=== PATIENT | male | born 1965 | race Hispanic/Latino ===

== ENCOUNTER 2016-06-05 12:41 | Emergency (ER) | payer MEDICARE ==
[2016-06-05 12:42] VITALS: BMI 33.5
[2016-06-05 12:49] VITALS: O2SAT 97
[2016-06-05 13:44] LABS: BASO # 0.1 K/uL (0.0-0.2); BASO % 1.1 % (0.0-2.0); EOS # 0.1 K/uL (0.0-0.7); EOS % 0.8 % (0.0-4.0); HEMATOCRIT 44.3 % (35.0-51.0); LYMPH % 23.2 % (20.0-40.0); MEAN CELL VOLUME 89.7 fL (80.0-94.0); MEAN CORPUSCULAR HEMOGLOBIN 29.9 pg (27.0-31.0); MEAN CORPUSCULAR HGB CONC 33.3 g/dL (33.0-37.0); MEAN PLATELET VOLUME 9.3 fL (7.2-11.7); MONO % 7.5 % (0.0-10.0); NRBC % 0.1 % (0.0-2.0); RED CELL DISTRIBUTION WIDTH 14.2 % (11.5-14.5)
[2016-06-05 13:57] LABS: RBC URINE < 1 /hpf (0-3); URINE BILIRUBIN NEGATIVE (NEGATIVE); URINE BLOOD NEGATIVE (NEGATIVE); URINE COLOR Yellow (YELLOW); URINE GLUCOSE (UA) NORMAL (Normal); URINE KETONE 1+ mg/dL (NEGATIVE); URINE LEUKOCYTE ESTERASE NEG Leu/uL (Negative); URINE PROTEIN NEGATIVE (NEGATIVE); URINE UROBILINOGEN NORMAL mg/dL (0.2-1.0); WBC URINE 1 /hpf (0-5)
[2016-06-05 14:02] LABS: CHLORIDE 99 mmol/L (98-107)
[2016-06-05 14:03] LABS: POTASSIUM 3.5 mmol/L (3.6-5.2); SODIUM 139 mmol/L (132-148)
[2016-06-05 14:05] LABS: ALB/GLOB RATIO 1.1 (1.0-2.1); ALKALINE PHOSPHATASE 93 U/L (38-126); AST/SGOT 58 U/L (17-59); BILIRUBIN,TOTAL 0.3 mg/dL (0.2-1.3); BLOOD UREA NITROGEN 12 mg/dL (9-20); CARBON DIOXIDE 21 mmol/L (22-30); GFR AFRICAN-AMERICAN > 60; TOTAL PROTEIN 7.8 g/dL (6.3-8.3)
[2016-06-05 14:06] LABS: ALCOHOL SERUM 177 mg/dl (0-10); ALT/SGPT 59 U/L (21-72); CALCIUM 8.4 mg/dl (8.6-10.4); GLUCOSE,RANDOM 161 mg/dL (75-110)
--- NOTE | 2016-06-05 14:31 | C.PDOC ---
History Of Present Illness 50 year old male presents to the ED requesting medication and detox from alcohol. Patient admits he drank today and notes he does not want to stay in the hospital. Denies suicidal ideation, homicidal ideation, or any physical complaints at this time. Time Seen by Provider: 06/05/16 13:24 Chief Complaint (Nursing): Substance Abuse History Per: Patient History/Exam Limitations: no limitations Onset/Duration Of Symptoms: Hrs Current Symptoms Are (Timing): Still Present Suicide/Self Injury Attempted (Context): None Modifying Factor(s): Alcohol Severity: Mild Past Medical History Reviewed: Historical Data, Nursing Documentation, Vital Signs Vital Signs: Last Vital Signs Temp 97.9 F 06/05/16 15:52 Pulse 107 H 06/05/16 15:52 Resp 20 06/05/16 15:52 BP 126/66 06/05/16 15:52 Pulse Ox 97 06/05/16 16:06 - Medical History PMH: Anxiety, Bipolar Disorder, Depression, Fractures (R KNEE AND R ARM RODS), HTN Surgical History: Hernia Repair - [facility] Procedures ALCOHOL DETOXIFICATION (10/18/14) CLOSED ENDOSCOPIC BIOPSY OF LARGE INTESTINE (04/02/13) COMBINED ALCOHOL AND DRUG DETOXIFICATION (05/20/03) DETOXIFICATION SERVICES FOR SUBSTANCE ABUSE TREATMENT (12/23/15) GROUP SLIP MAKER FOR SUBSTANCE ABUSE TREATMENT, PSYCHOEDUCATION (07/21/15) GROUP PSYCHOTHERAPY (11/18/15) INDIVID PSYCHOTHERAP NEC (07/07/14) INDIVIDUAL PSYCHOTHERAPY, COGNITIVE-BEHAVIORAL (11/18/15) INDIVIDUAL PSYCHOTHERAPY, SUPPORTIVE (05/08/15) INFLUENZA VACCINATION (03/13/14) INJECT/INFUSE NEC (10/03/13) INTRODUCTION OF ANTI-INFLAMMATORY INTO JOINTS, PERC APPROACH (07/12/15) INTRODUCTION OF LOCAL ANESTHETIC INTO JOINTS, PERC APPROACH (07/12/15) INTRODUCTION OF SERUM/TOX/VACCINE INTO MUSCLE, PERC APPROACH (03/10/15) MEDICATION MANAGEMENT (08/24/15) OTHER GROUP THERAPY (07/07/14) PERCUTANEOUS ABDOMINAL DRAINAGE (06/01/13) PSYCHIAT DRUG THERAP NEC (10/18/13) VENOUS PUNCTURE NEC (04/17/12) Family History: States: Unknown Family Hx - Social History Hx Tobacco Use: Yes Hx Alcohol Use: Yes (last drank 2 liters) Hx Substance Use: No - Immunization History Hx Tetanus Toxoid Vaccination: No Hx Influenza Vaccination: Yes Hx Pneumococcal Vaccination: No Review Of Systems Except As Marked, All Systems Reviewed And Found Negative. Constitutional: Positive for: Other (+Alcohol detox). Negative for: Fever, Chills Cardiovascular: Negative for: Chest Pain Respiratory: Negative for: Shortness of Breath Gastrointestinal: Negative for: Abdominal Pain Psych: Negative for: Suicidal ideation Physical Exam - Physical Exam Appears: Non-toxic, No Acute Distress, Other (+AOB +Intoxicated) Skin: Normal Color, Warm, Dry Head: Atraumatic, Normacephalic Eye(s): bilateral: Normal Inspection Oral Mucosa: Moist Chest: Symmetrical, No Deformity Cardiovascular: Rhythm Regular, No Murmur Respiratory: Normal Breath Sounds, No Accessory Muscle Use, No Rales, No Rhonchi , No Wheezing Extremity: Normal ROM Neurological/Psych: Oriented x3 ED Course And Treatment - Laboratory Results Result Diagrams: 06/05/16 13:37 06/05/16 13:37 O2 Sat by Pulse Oximetry: 97 (Room air) Pulse Ox Interpretation: Normal Progress Note: Blood work and Urinalysis ordered and reviewed. Case discussed with the crisis care program director who agreed to evaluate the patient. Medical Decision Making Medical Decision Making: Post discussion with dr baca by ashly pt is to be refereed to OP services Pt alert verbal stead gait stable for discharge Disposition - Disposition Disposition Time: 16:06 Condition: FAIR Forms: General Discharge Instructions - Clinical Impression Clinical Impression: Alcohol abuse, Bipolar disorder - Scribe Statement The provider has reviewed the documentation as recorded by the Scribe Don Alcaraz. Provider Attestation: All medical record entries made by the Scribe were at my direction and personally dictated by me. I have reviewed the chart and agree that the record accurately reflects my personal performance of the history, physical exam, medical decision making, and the department course for this patient. I have also personally directed, reviewed, and agree with the discharge instructions and disposition.
[2016-06-05 15:53] VITALS: BP 126/66; PULSE 107; RESP 20; TEMP 97.9
== END 2016-06-05 16:24 | disposition home or self-care (01) ==
LOC: C.ER 12:41
DX: F10.10 Alcohol abuse, uncomplicated (principal); Y90.6 Blood alcohol level of 120-199 mg/100 ml; F31.9 Bipolar disorder, unspecified
CPT/HCPCS: 80053; 81001; 85025; 99284; G0480

== ENCOUNTER 2016-07-10 01:10 | Inpatient (IN) | payer MEDICARE, MEDICAID ==
[2016-07-10 01:11] VITALS: BMI 33.5
--- NOTE | 2016-07-10 02:02 | C.PDOC ---
History Of Present Illness 50 y/o male presents to ED with complaint of wanting to hurt himself. Patient states he took 10 bags of heroin without effect. Patient verbalizing he wants to hurt himself in ER. Denies homicidal ideation or any other complaints at this time. Chief Complaint (Nursing): Psychiatric Evaluation History Per: Patient History/Exam Limitations: no limitations Current Symptoms Are (Timing): Still Present Suicide/Self Injury Attempted (Context): Ingestion (heroin) Modifying Factor(s): Narcotics Associated Symptoms: Suicidal Thoughts Recent travel outside of the [place]: No Past Medical History Reviewed: Historical Data, Nursing Documentation, Vital Signs Vital Signs: Last Vital Signs Temp 98.1 F 07/10/16 04:16 Pulse 108 H 07/10/16 04:16 Resp 20 07/10/16 04:16 BP 93/56 L 07/10/16 04:16 Pulse Ox 96 07/10/16 05:46 - Medical History PMH: Anxiety, Bipolar Disorder, Depression, Fractures (R KNEE AND R ARM RODS), HTN Surgical History: Hernia Repair - [facility] Procedures ALCOHOL DETOXIFICATION (10/18/14) CLOSED ENDOSCOPIC BIOPSY OF LARGE INTESTINE (04/02/13) COMBINED ALCOHOL AND DRUG DETOXIFICATION (05/20/03) DETOXIFICATION SERVICES FOR SUBSTANCE ABUSE TREATMENT (12/23/15) GROUP LAW TUTOR FOR SUBSTANCE ABUSE TREATMENT, PSYCHOEDUCATION (07/21/15) GROUP PSYCHOTHERAPY (05/25/16) INDIVID PSYCHOTHERAP NEC (07/07/14) INDIVIDUAL PSYCHOTHERAPY, COGNITIVE-BEHAVIORAL (11/18/15) INDIVIDUAL PSYCHOTHERAPY, SUPPORTIVE (05/08/15) INFLUENZA VACCINATION (03/13/14) INJECT/INFUSE NEC (10/03/13) INTRODUCTION OF ANTI-INFLAMMATORY INTO JOINTS, PERC APPROACH (07/12/15) INTRODUCTION OF LOCAL ANESTHETIC INTO JOINTS, PERC APPROACH (07/12/15) INTRODUCTION OF SERUM/TOX/VACCINE INTO MUSCLE, PERC APPROACH (03/10/15) MEDICATION MANAGEMENT (08/24/15) OTHER GROUP THERAPY (07/07/14) PERCUTANEOUS ABDOMINAL DRAINAGE (06/01/13) PSYCHIAT DRUG THERAP NEC (10/18/13) VENOUS PUNCTURE NEC (04/17/12) Family History: States: Unknown Family Hx - Social History Hx Tobacco Use: Yes Hx Alcohol Use: Yes (DRINKS 1/2 GALLON/DAILY) Hx Substance Use: No - Immunization History Hx Tetanus Toxoid Vaccination: No Hx Influenza Vaccination: Yes Hx Pneumococcal Vaccination: No Review Of Systems Except As Marked, All Systems Reviewed And Found Negative. Constitutional: Negative for: Fever, Chills Cardiovascular: Negative for: Chest Pain, Palpitations Respiratory: Negative for: Shortness of Breath, Wheezing Gastrointestinal: Negative for: Nausea, Vomiting Skin: Negative for: Rash Neurological: Negative for: Headache, Dizziness Physical Exam - Physical Exam Appears: Non-toxic, No Acute Distress Skin: Warm, Dry Head: Atraumatic, Normacephalic Chest: Symmetrical Cardiovascular: Rhythm Regular Respiratory: Normal Breath Sounds, No Rales, No Rhonchi, No Wheezing Gastrointestinal/Abdominal: Soft, No Tenderness Back: Other (wearing back brace for past back injury) Extremity: Normal ROM, Capillary Refill (< 2 sec. ) Neurological/Psych: Oriented x3 ED Course And Treatment - Laboratory Results Result Diagrams: 07/10/16 02:01 07/10/16 02:01 O2 Sat by Pulse Oximetry: 96 (ra) Pulse Ox Interpretation: Normal Progress Note: 0545H presently awaiting crisis disposition. Psychiatrist being consulted. Reassessment Condition: Improved Disposition Discussed With : Sammy Baldwin Doctor Will See Patient In The: Hospital Counseled Patient/Family Regarding: Diagnosis - Disposition Disposition: HOSPITALIZED Disposition Time: 06:00 Condition: STABLE - POA Present On Arrival: None - Clinical Impression Clinical Impression: Major depressive disorder, Opiate abuse, continuous, Polysubstance abuse - Scribe Statement The provider has reviewed the documentation as recorded by the Macrina Jameson Provider Scribe Attestation: All medical record entries made by the Macrina were at my direction and personally dictated by me. I have reviewed the chart and agree that the record accurately reflects my personal performance of the history, physical exam, medical decision making, and the department course for this patient. I have also personally directed, reviewed, and agree with the discharge instructions and disposition.
[2016-07-10 02:04] LABS: BASO # 0.1 K/uL (0.0-0.2); BASO % 1.3 % (0.0-2.0); EOS # 0.3 K/uL (0.0-0.7); EOS % 2.8 % (0.0-4.0); LYMPH # 3.9 K/uL (1.0-4.3); LYMPH % 36.7 % (20.0-40.0); MEAN CELL VOLUME 87.6 fL (80.0-94.0); MEAN CORPUSCULAR HEMOGLOBIN 29.7 pg (27.0-31.0); MEAN CORPUSCULAR HGB CONC 33.9 g/dL (33.0-37.0); MEAN PLATELET VOLUME 8.9 fL (7.2-11.7); MONO # 0.5 K/uL (0.0-0.8); RED CELL DISTRIBUTION WIDTH 13.8 % (11.5-14.5); WHITE BLOOD COUNT 10.6 K/uL (4.8-10.8)
[2016-07-10 02:16] LABS: CHLORIDE 105 mmol/L (98-107); POTASSIUM 3.8 mmol/L (3.6-5.2); SODIUM 147 mmol/L (132-148)
[2016-07-10 02:18] LABS: BILIRUBIN,TOTAL 0.7 mg/dL (0.2-1.3); GFR AFRICAN-AMERICAN > 60
[2016-07-10 02:19] LABS: ALB/GLOB RATIO 1.3 (1.0-2.1); ALKALINE PHOSPHATASE 122 U/L (38-126); ALT/SGPT 36 U/L (21-72); AST/SGOT 54 U/L (17-59); BLOOD UREA NITROGEN 8 mg/dL (9-20); CALCIUM 8.4 mg/dl (8.6-10.4); CARBON DIOXIDE 23 mmol/L (22-30); GLUCOSE,RANDOM 105 mg/dL (75-110); TOTAL PROTEIN 7.8 g/dL (6.3-8.3)
[2016-07-10 02:20] LABS: ALCOHOL SERUM 276 mg/dl (0-10)
[2016-07-10 04:23] LABS: RBC URINE < 1 /hpf (0-3); URINE BILIRUBIN NEGATIVE (NEGATIVE); URINE BLOOD NEGATIVE (NEGATIVE); URINE COLOR Yellow (YELLOW); URINE GLUCOSE (UA) NORMAL (Normal); URINE KETONE NEGATIVE (NEGATIVE); URINE LEUKOCYTE ESTERASE NEG Leu/uL (Negative); URINE PROTEIN NEGATIVE (NEGATIVE); URINE UROBILINOGEN NORMAL mg/dL (0.2-1.0)
--- NOTE | 2016-07-10 10:24 | PCM.PSYCH ---
Initial Psychiatric Evaluation - Initial Psychiatric Evaluation Type of Admission: Voluntary Legal Status: Capacity Chief Complaint (in patient's own words): 'I am drinking and I am depressed.' History of Present Illness and Precipitating Events: Patient seen and evaluated, chart reviewed and discussed with nurse. Patient discussed at morning meeting and it was reported that the patient has a history of abusing alcohol, Xanax, with history of overdose. 50 yo male with PMH bipolar disorder and depression presents with a chief complain of alcohol abuse and 2 weeks of depression. Patient relapsed with alcohol abuse when his '' 9 months ago, averages 1 liter of vodka a day. Patient began abusing alcohol at 9 years old, and is not able to remember when he was sober last or for how long. History includes detox 2 years ago at [facility] for 4 days, and was hospitalized at [facility] 5 years ago for medication detox. Has been to [facility] multiple times in the past. Denies any drug use. Denies history of seizures, delirium tremors. Positive for liver cirrhosis. Withdrawal symptoms include anxiety, generalized body soreness, shaking, sweating. Denies shortness of breath, chest pain, nausea, diarrhea, constipation, fever, chills, abdominal pain, body aches. Patient reports depressed state, feelings of helplessness and worthlessness, decreased participation in hobbies, poor sleep and appetite, feeling tired, has good concentration. Patient has not taken his psychiatric medications for 5 months because he thought he could do well without them. Denies current suicidal ideation, had 2 past suicide attempts by wrist cutting in 2000, 2005. Denies homicidal ideation, auditory or visual hallucinations, people being able to read his thoughts, or feeling like he is being followed. Denies anger, agitation. Patient is unsure of what his plans will be after discharge. General impression includes anxious demeanor and visible sweating from withdrawal symptoms. Social History: Single, lives alone at [address] [place] [address]. 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 Denies legal issues. Past Psychiatric History - Past Psychiatric History Previous Treatment History: Inpatient Prior Professional Help: Detox Prior Psychiatric Treatment: Bipolar disorder, depression, suicidal ideation At what hospital: [facility], [facility] History of Abuse: Patient denies prescription drug, cocaine, heroin, marijuana abuse. History of ETOH/Drug Use: Patient began abusing alcohol at 9 yo. Currently drinks about 1 liter of vodka a day. Patient cannot recall the last time he was steadily sober. Admits to being hospitalized at [facility] 2 years ago for detox - 4 day stay, [facility] 5 years ago for detox - 1 week stay. History of Family Illness: Denies. Pertinent Medical Hx (Current Medical&Sleep Prob, Allergies): Allergies Allergy/AdvReac Type Severity Reaction Status Date / Time No Known Allergies Allergy Verified 06/05/16 12:45 Folic Acid 1 mg PO DAILY #30 tab 06/04/16 Multimineral/Multivitamin [Therapeutic-M Tab] 1 tab PO DAILY #30 tab 06/04/16 Nicotine 21 mg/24 hr [Nicoderm Cq] 1 patch TD DAILY #30 patch 06/04/16 OXcarbazepine [Trileptal] 150 mg PO BID #60 tab 06/04/16 Prazosin HCl [Minipress] 2 mg PO HS #60 cap 06/04/16 Thiamine [Vitamin B1 Tab] 100 mg PO DAILY #30 tab 06/04/16 buPROPion SR [Wellbutrin SR 150 MG] 150 mg PO DAILY #30 tab 06/04/16 traZODone [Desyrel] 50 mg PO HS #30 tab 06/04/16 Allergies: NKDA PMH: cirrhosis Past Psychiatric History: Bipolar disorder, depression Family history: denies Family psychiatric history: denies Review of Systems - Review of Systems All systems: reviewed and no additional remarkable complaints except - Psychiatric Psychiatric: Anxiety, Irritability, Suicidal Ideation Mental Status Examination - Personal Presentation Personal Presentation: Looks stated age - Affect Affect: Constricted, Depressed - Motor Activity Motor Activity: Calm - Reliability in Providing Information Reliability in Providing Information: Good - Speech Speech: Organized - Mood Mood: Depressed, Anxious - Formal Thought Process Formal Thought Process: No Impairment - Obsessions/Compulsions Obsessions: No Compulsions: No - Cognitive Functions Orientation: Person, Place, Situation, Time Sensorium: Alert Attention/Concentration: Attentive Abstract Thinking: [place] Estimate of Intelligence: Below average Judgement: Imparied, as evidence by: Poor judgement, Imparied, as evidence by: Lack of insight into illness - Risk Risk: Suicidal, Withdrawal, Diminished functioning - Strength & Assets Inventory Strength & Assets Inventory: Intelligence DSM 5 DX - DSM 5 DSM 5 Diagnosis: Bipolar disorder most recent episode depressed severe Alcohol use disorder severe Alcohol withdrawal - Recommended/Plan of Treatment Treatment Recommendations and Plan of Treatment: Bipolar disorder most recent episode depressed severe CBT Psychoeducation Supportive therapy, group therapy, individual therapy Neurontin 100 mg by mouth 3 times a day Trazodone 50 mg by mouth daily at bedtime Alcohol use disorder severe CBT Psychoeducation Supportive therapy, individual therapy Use [place] for abstinence Alcohol withdrawal uncomplicated CBT Psychoeducation Supportive therapy, individual therapy Librium when necessary Librium taper Folic acid/thiamine/multivitamin
[2016-07-10] MEDS: Multiple Vitamins Tab PO SCH (11:51)
[2016-07-11] MEDS: Multiple Vitamins Tab PO SCH (10:05)
--- NOTE | 2016-07-11 14:47 | PCM.PYCHPN ---
Psychiatric Progress Note - Psychiatric Progress Note Patient seen today, length of contact: 15 mins Patient Chief Complaint: 'I am drinking and I am depressed.' Problems Identified/Issues Discussed: Patient seen and evaluated, chart reviewed and discussed with nurse. 50 yo M discussed at morning meeting and it was reported that the patient had trouble sleeping and is experiencing hand tremors. Upon follow up patient reports that he "feels horrible today", and that the Librium is not working for him. Patient is experiencing anxiety from withdrawal , shaking, nausea, poor sleep, decreased appetite. Patient requests a nicotine patch because he smokes 1 pack per day. Denies medication side effects and vomiting. Denies suicidal and homicidal hallucinations, auditory and visual hallucinations, persecutory delusions. Mentions that a friend, Judith, will take him after discharge, but he is unsure of his plans following discharge. General impression includes an anxious and agitated state. During the interprofessional meeting the patient says he feels agitated. Admitted to being homeless, an alcoholic, and began abusing heroin at age 50. States that his friend Judith from [place] wants to help him until he can find his own place to live. Medication Change: Yes (start trileptal ) Medical Record Reviewed: Yes Mental Status Examination - Cognitive Function Orientation: Person, Place, Situation, Time Memory: Intact Attention: WNL Concentration: Poor Association: WNL - Mood Mood: Depressed, Anxious - Affect Affect: Constricted, Depressed - Speech Speech: Soft - Formal Thought Process Formal Thought Process: No Impairment - Suicidal Ideation Suicidal Ideation: No - Homicidal Ideation Homicidal Ideation: No Goal/Treatment Plan - Goal/Treatment Plan Need for Continued Stay: Discharge may exacerbated symptoms, Severe functional impairment Progress Toward Problem(s) and Goals/Treatment Plan: Bipolar disorder most recent episode depressed severe CBT Psychoeducation Supportive therapy, group therapy, individual therapy Neurontin 100 mg by mouth 3 times a day Trazodone 50 mg by mouth daily at bedtime Strat Trileptal 150 mg PO BID Alcohol use disorder severe CBT Psychoeducation Supportive therapy, individual therapy Use [place] for abstinence Alcohol withdrawal uncomplicated CBT Psychoeducation Supportive therapy, individual therapy Librium when necessary Librium taper Folic acid/thiamine/multivitamin
[2016-07-12] MEDS ORDERED: Multivitamin With Minerals Tab PO SCH (10:00)
--- NOTE | 2016-07-12 10:00 | PCM.PYCHPN ---
Psychiatric Progress Note - Psychiatric Progress Note Patient seen today, length of contact: 15 mins Patient Chief Complaint: 'I feel depressed.' Problems Identified/Issues Discussed: Patient seen and evaluated, chart reviewed and discussed with nurse. 50 yo M discussed at morning meeting at it was reported that the patient feels the same as yesterday, depressed. Says he is agitated with himself and experiences anxiety because he is homeless and does not have anywhere to go. Denies feelings of anger. Feels like detox is going by slowly. Patient says he has a poor appetite, is unable to sleep well and that it is hard to stay asleep. Withdrawal symptoms include sweating, shaking, nausea, body aches. Denies any side effects to medications. Denies SOB, chest pain, headaches, vomiting, abdominal pain, fever, chills. Denies suicidal or homicidal ideations , auditory or visual hallucinations, feeling like people are out to get him, following him, reading his mind and thoughts. Plans for discharge include speaking to a manager social media. General impression includes anxious demeanor. Medication Change: Yes (start trileptal ) Medical Record Reviewed: Yes Mental Status Examination - Cognitive Function Orientation: Person, Place, Situation, Time Memory: Intact Attention: WNL Concentration: Poor Association: WNL - Mood Mood: Depressed, Anxious - Affect Affect: Constricted, Depressed - Speech Speech: Soft - Formal Thought Process Formal Thought Process: No Impairment - Suicidal Ideation Suicidal Ideation: No - Homicidal Ideation Homicidal Ideation: No Goal/Treatment Plan - Goal/Treatment Plan Need for Continued Stay: Discharge may exacerbated symptoms, Severe functional impairment Progress Toward Problem(s) and Goals/Treatment Plan: Bipolar disorder most recent episode depressed severe CBT Psychoeducation Supportive therapy, group therapy, individual therapy Neurontin 100 mg by mouth 3 times a day Trazodone 50 mg by mouth daily at bedtime Strat Trileptal 150 mg PO BID Alcohol use disorder severe CBT Psychoeducation Supportive therapy, individual therapy Use [place] for abstinence Alcohol withdrawal uncomplicated CBT Psychoeducation Supportive therapy, individual therapy Librium when necessary Librium taper Folic acid/thiamine/multivitamin
[2016-07-12] MEDS: Multiple Vitamins Tab PO SCH (11:08)
[2016-07-13] MEDS: Multiple Vitamins Tab PO SCH (09:57)
[2016-07-13] MEDS ORDERED: Pneumococcal 23-Valent Vaccine IM ONE (10:00)
--- NOTE | 2016-07-13 13:11 | PCM.PYCHPN ---
Psychiatric Progress Note - Psychiatric Progress Note Patient seen today, length of contact: 15 mins Patient Chief Complaint: 'I feel depressed.' Problems Identified/Issues Discussed: Patient seen and evaluated, chart reviewed and discussed with nurse. 50 yo M discussed at morning meeting at it was reported that the patient does not want to go to rehab. Upon follow up patient reports that he still thinks about taking his own life and feels sluggish. Denies wanting to hurt others. Feels anxious because he is homeless and has no where to go. Withdrawal symptoms include abdominal pain , sweating, shaking, and denies medication side effects. Patient is able to sleep though the night, has a poor appetite but says it is getting better. Denies feeling like people are out to get him, following him. Patient is unsure of plan when he leaves, but wants help finding a [facility] and a 28 day program. General impression includes depressed, cooperative. Agitation and anxiety has improved from yesterday. Medication Change: Yes (increase trileptal ) Medical Record Reviewed: Yes Mental Status Examination - Cognitive Function Orientation: Person, Place, Situation, Time Memory: Intact Attention: WNL Concentration: Poor Association: WNL - Mood Mood: Depressed, Anxious - Affect Affect: Constricted, Depressed - Speech Speech: Soft - Formal Thought Process Formal Thought Process: No Impairment - Suicidal Ideation Suicidal Ideation: No - Homicidal Ideation Homicidal Ideation: No Goal/Treatment Plan - Goal/Treatment Plan Need for Continued Stay: Discharge may exacerbated symptoms, Severe functional impairment Progress Toward Problem(s) and Goals/Treatment Plan: Bipolar disorder most recent episode depressed severe CBT Psychoeducation Supportive therapy, group therapy, individual therapy Neurontin 100 mg by mouth 3 times a day Trazodone 50 mg by mouth daily at bedtime Increase Trileptal 300 mg PO BID Alcohol use disorder severe CBT Psychoeducation Supportive therapy, individual therapy Use [place] for abstinence Alcohol withdrawal uncomplicated CBT Psychoeducation Supportive therapy, individual therapy Librium when necessary Librium taper Folic acid/thiamine/multivitamin - Smoking Cessation Smoking Cessation Initiated: No
[2016-07-14] MEDS: Multiple Vitamins Tab PO SCH (10:03)
--- NOTE | 2016-07-14 14:16 | PCM.PYCHPN ---
Psychiatric Progress Note - Psychiatric Progress Note Patient seen today, length of contact: 15 mins Patient Chief Complaint: i am feeling little better Problems Identified/Issues Discussed: Patient seen and evaluated, chart reviewed and discussed with nurse. Pt reports improvement in his mood and improvement in the withdrawal symptoms. He is still reporting headaches and anxiety however reports improvement in his sleep. Supportive therapy was given Medication Change: Yes (increase trileptal ) Medical Record Reviewed: Yes Mental Status Examination - Cognitive Function Orientation: Person, Place, Situation, Time Memory: Intact Attention: WNL Concentration: Poor Association: WNL - Mood Mood: Anxious - Affect Affect: Constricted, Depressed - Speech Speech: Soft - Formal Thought Process Formal Thought Process: No Impairment - Suicidal Ideation Suicidal Ideation: No - Homicidal Ideation Homicidal Ideation: No Goal/Treatment Plan - Goal/Treatment Plan Need for Continued Stay: Discharge may exacerbated symptoms, Severe functional impairment Progress Toward Problem(s) and Goals/Treatment Plan: Bipolar disorder most recent episode depressed severe CBT Psychoeducation Supportive therapy, group therapy, individual therapy Neurontin 100 mg by mouth 3 times a day Trazodone 50 mg by mouth daily at bedtime Trileptal 300 mg PO BID Alcohol use disorder severe CBT Psychoeducation Supportive therapy, individual therapy Use [place] for abstinence Alcohol withdrawal uncomplicated CBT Psychoeducation Supportive therapy, individual therapy Librium when necessary Librium taper Folic acid/thiamine/multivitamin - Smoking Cessation Smoking Cessation Initiated: No
[2016-07-15 07:34] VITALS: O2SAT 97
[2016-07-15] MEDS: Multiple Vitamins Tab PO SCH (09:35)
--- NOTE | 2016-07-15 15:52 | PCM.PYCHPN ---
Psychiatric Progress Note - Psychiatric Progress Note Patient seen today, length of contact: 15 mins Patient Chief Complaint: 'I feel depressed.' Problems Identified/Issues Discussed: Patient seen and evaluated, chart reviewed and discussed with nurse. As per the staff, pt is improving and has started attending meetings. Pt reports improvement in his mood and improvement in the withdrawal symptoms. He is taking medications and denies any side effects. Supportive therapy was given Medication Change: Yes (d/c neurontin) Medical Record Reviewed: Yes Mental Status Examination - Cognitive Function Orientation: Person, Place, Situation, Time Memory: Intact Attention: WNL Concentration: WNL Association: WNL - Mood Mood: Anxious - Affect Affect: Constricted - Speech Speech: Soft - Formal Thought Process Formal Thought Process: No Impairment - Suicidal Ideation Suicidal Ideation: No - Homicidal Ideation Homicidal Ideation: No Goal/Treatment Plan - Goal/Treatment Plan Need for Continued Stay: Discharge may exacerbated symptoms, Severe functional impairment Progress Toward Problem(s) and Goals/Treatment Plan: Bipolar disorder most recent episode depressed severe CBT Psychoeducation Supportive therapy, group therapy, individual therapy d/c Neurontin 100 mg by mouth 3 times a day Trazodone 50 mg by mouth daily at bedtime Trileptal 300 mg PO BID Alcohol use disorder severe CBT Psychoeducation Supportive therapy, individual therapy Use WA for abstinence Alcohol withdrawal uncomplicated CBT Psychoeducation Supportive therapy, individual therapy Librium when necessary Librium taper Folic acid/thiamine/multivitamin
[2016-07-16] MEDS: Multiple Vitamins Tab PO SCH (09:49)
--- NOTE | 2016-07-16 10:09 | PCM.PYCHDC ---
Mental Status Examination - Mental Status Examination Orientation: Person, Place, Situation, Time Memory: Intact Mood: Neutral Affect: Constricted Speech: Soft Attention: WNL Concentration: WNL Association: WNL Fund of Knowledge: WNL Formal Thought Process: No Impairment Description of patient's judgement and insight: good, fair Psychotic Thoughts and Behaviors: denies any AVH Suicidal Ideation: No Current Homicidal Ideation?: No Discharge Summary - Discharge Note Reason for Hospitalization: Patient seen and evaluated, chart reviewed and discussed with nurse. Patient discussed at morning meeting and it was reported that the patient has a history of abusing alcohol, Xanax, with history of overdose. 50 yo male with PMH bipolar disorder and depression presents with a chief complain of alcohol abuse and 2 weeks of depression. Patient relapsed with alcohol abuse when his '' 9 months ago, averages 1 liter of vodka a day. Patient began abusing alcohol at 9 years old, and is not able to remember when he was sober last or for how long. History includes detox 2 years ago at [facility] [place] [facility] for 4 days, and was hospitalized at [facility] 5 years ago for medication detox. Has been to [facility] multiple times in the past. Denies any drug use. Denies history of seizures, delirium tremors. Positive for liver cirrhosis. Withdrawal symptoms include anxiety, generalized body soreness, shaking, sweating. Denies shortness of breath, chest pain, nausea, diarrhea, constipation, fever, chills, abdominal pain, body aches. Patient reports depressed state, feelings of helplessness and worthlessness, decreased participation in hobbies, poor sleep and appetite, feeling tired, has good concentration. Patient has not taken his psychiatric medications for 5 months because he thought he could do well without them. Denies current suicidal ideation, had 2 past suicide attempts by wrist cutting in 2000, 2005. Denies homicidal ideation, auditory or visual hallucinations, people being able to read his thoughts, or feeling like he is being followed. Denies anger, agitation. Patient is unsure of what his plans will be after discharge. General impression includes anxious demeanor and visible sweating from withdrawal symptoms. Social History: Single, lives alone at [address] [place] [address]. 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 Denies legal issues. Consultations:: List each consultation separately and include: 1. Reason for request. 2. Findings. 3. Follow-up Summary of Hospital Course include:: 1. Description of specific treatment plan utilized for patients during their course of treatmen. 2. Summarize the time- course for resolution of acute symptoms and/or regressed behaviors. 3. Describe issues identified and worked on during hospitalization. 4. Describe medication utilized. 5. Describe medical problems identified and treated. 6. Reassessment of suicide risk Summary of Hospital Course: During the course of his stay, patient (pt) started progressively improving and he no longer remained irritable, depressed, and suicidal. His mood was improved and he started attending groups and meetings and started socializing. Patient denied any feelings of hopelessness, helplessness, and worthlessness, denied any problem with the sleep or appetite, denied suicidal ideation or homicidal ideation. Pt denied any auditory or visual hallucinations. Some changes were made in his current medications and patient was discharged on following medications. He tolerated these medications very well and denied any side effects. - Final Diagnosis (DSM 5) Condition upon Discharge: STABLE DSM 5: Bipolar disorder most recent episode depressed severe Alcohol use disorder severe Alcohol withdrawal uncomplicated Disposition: HOME/ ROUTINE Follow-up Treatment Plan: Education: Pt was educated and counseled about the risks and benefits of taking and not taking medications. Pt was educated and counseled about the risks of drinking and abusing drugs. Pt was educated and counseled to go to the ER or call 911 if pt develop suicidal ideation or homicidal ideation, worsening of symptoms or severe side effects of the meds. Prescriptions/Medication Reconciliation: OXcarbazepine [Trileptal] 300 mg PO BID #60 tab Prazosin HCl [Minipress] 1 mg PO HS #60 cap traZODone [Desyrel] 50 mg PO HS #30 tab
[2016-07-16 10:37] VITALS: BP 112/78; PULSE 109; RESP 20; TEMP 97.7
== END 2016-07-16 10:41 | disposition home or self-care (01) | DRG 885 ==
LOC: C.ER 01:10 → C.5E 06:02
PROC: HZ2ZZZZ Detoxification Services for Substance Abuse Treatment (ICD-10-PCS; principal; 2016-07-10)
PROC: HZ42ZZZ Group Counseling for Substance Abuse Treatment, Cognitive-Behavioral (ICD-10-PCS; 2016-07-10)
PROC: HZ32ZZZ Individual Counseling for Substance Abuse Treatment, Cognitive-Behavioral (ICD-10-PCS; 2016-07-10)
PROC: HZ46ZZZ Group Counseling for Substance Abuse Treatment, Psychoeducation (ICD-10-PCS; 2016-07-10)
PROC: HZ36ZZZ Individual Counseling for Substance Abuse Treatment, Psychoeducation (ICD-10-PCS; 2016-07-10)
PROC: HZ59ZZZ Individual Psychotherapy for Substance Abuse Treatment, Supportive (ICD-10-PCS; 2016-07-10)
DX: F31.4 Bipolar disorder, current episode depressed, severe, without psychotic features (principal); F11.20 Opioid dependence, uncomplicated; K74.60 Unspecified cirrhosis of liver; F10.230 Alcohol dependence with withdrawal, uncomplicated; I10 Essential (primary) hypertension; F41.9 Anxiety disorder, unspecified; Y90.8 Blood alcohol level of 240 mg/100 ml or more; F17.210 Nicotine dependence, cigarettes, uncomplicated; Z59.0 Homelessness

== ENCOUNTER 2017-11-08 08:06 | Emergency (ER) | payer MEDICARE, OTHER ==
[2017-11-08 08:06] VITALS: BMI 33.5
[2017-11-08 08:19] VITALS: BP 157/90; PULSE 112; RESP 20; TEMP 98.6; O2SAT 96
--- NOTE | 2017-11-08 08:54 | C.PDOC ---
History Of Present Illness 52 y/o male presents to the ED requesting detox from alcohol. He denies any suicidal or homicidal ideation. Last drink was today at 6:00am. Of note, patient was discharged from [facility] yesterday for the same. Time Seen by Provider: 11/08/17 08:30 Chief Complaint (Nursing): Substance Abuse History Per: Patient History/Exam Limitations: no limitations Onset/Duration Of Symptoms: Days Current Symptoms Are (Timing): Still Present Modifying Factor(s): Alcohol Past Medical History Reviewed: Historical Data, Nursing Documentation, Vital Signs Vital Signs: Last Vital Signs Temp 98.6 F 11/08/17 08:16 Pulse 112 H 11/08/17 08:16 Resp 20 11/08/17 08:16 BP 157/90 H 11/08/17 08:16 Pulse Ox 96 11/08/17 08:54 - Medical History PMH: Anxiety, Bipolar Disorder, Depression, Fractures (R KNEE AND R ARM RODS), HTN (Pt denies) Denies: Diabetes, Hepatitis, HIV, Chronic Kidney Disease, Seizures, Sexually Transmitted Disease Surgical History: Hernia Repair - [facility] ALCOHOL DETOXIFICATION (10/18/14) CLOSED ENDOSCOPIC BIOPSY OF LARGE INTESTINE (04/02/13) COMBINED ALCOHOL AND DRUG DETOXIFICATION (05/20/03) DETOXIFICATION SERVICES FOR SUBSTANCE ABUSE TREATMENT (09/20/17) GROUP STONE DECORATOR FOR SUBSTANCE ABUSE TREATMENT, PSYCHOEDUCATION (07/10/16) GROUP STONE DECORATOR FOR SUBSTANCE ABUSE, COGNITIVE BEHAVIORAL (07/10/16) GROUP PSYCHOTHERAPY (10/31/17) INDIV STONE DECORATOR FOR SUBSTANCE ABUSE TREATMENT, PSYCHOEDUCATION (07/10/16) INDIV STONE DECORATOR FOR SUBSTANCE ABUSE, COGNITIVE BEHAVIORAL (07/10/16) INDIV PSYCHOTHERAPY FOR SUBSTANCE ABUSE TREATMENT, SUPPORT (09/20/17) INDIV PSYCHOTHERAPY FOR SUBSTANCE ABUSE, MOTIVATION ENHANCE (09/20/17) INDIV PSYCHOTHERAPY FOR SUBSTANCE ABUSE, PSYCHOEDUCATION (09/20/17) INDIVID PSYCHOTHERAP NEC (07/07/14) INDIVIDUAL PSYCHOTHERAPY, BEHAVIORAL (10/31/17) INDIVIDUAL PSYCHOTHERAPY, COGNITIVE-BEHAVIORAL (11/18/15) INDIVIDUAL PSYCHOTHERAPY, SUPPORTIVE (05/08/15) INFLUENZA VACCINATION (03/13/14) INJECT/INFUSE NEC (10/03/13) INTRODUCTION OF ANTI-INFLAMMATORY INTO JOINTS, PERC APPROACH (07/12/15) INTRODUCTION OF LOCAL ANESTHETIC INTO JOINTS, PERC APPROACH (07/12/15) INTRODUCTION OF SERUM/TOX/VACCINE INTO MUSCLE, PERC APPROACH (03/10/15) MEDICATION MANAGEMENT (08/24/15) OTHER GROUP THERAPY (07/07/14) PERCUTANEOUS ABDOMINAL DRAINAGE (06/01/13) PSYCHIAT DRUG THERAP NEC (10/18/13) VENOUS PUNCTURE NEC (04/17/12) Family History: States: Unknown Family Hx - Social History Hx Tobacco Use: Yes Hx Alcohol Use: Yes Hx Substance Use: Yes - Immunization History Hx Tetanus Toxoid Vaccination: No Hx Influenza Vaccination: No Hx Pneumococcal Vaccination: No Review Of Systems Except As Marked, All Systems Reviewed And Found Negative. Constitutional: Negative for: Fever, Chills Cardiovascular: Negative for: Chest Pain Respiratory: Negative for: Shortness of Breath Gastrointestinal: Negative for: Vomiting Neurological: Negative for: Weakness, Numbness Psych: Positive for: Other (Alcohol abuse). Negative for: Suicidal ideation, Withdrawal Physical Exam - Physical Exam Appears: Non-toxic, No Acute Distress Skin: Normal Color, Warm, Dry Head: Atraumatic, Normacephalic Eye(s): bilateral: Normal Inspection Nose: Normal Oral Mucosa: Moist Neck: Supple Chest: Symmetrical Cardiovascular: Rhythm Regular, No Murmur Respiratory: Normal Breath Sounds, No Accessory Muscle Use Gastrointestinal/Abdominal: Bowel Sounds (normal), Soft, No Tenderness Extremity: Bilateral: Atraumatic, Normal Color And Temperature, Normal ROM Neurological/Psych: Oriented x3, Normal Speech Gait: Steady ED Course And Treatment O2 Sat by Pulse Oximetry: 96 (RA) Pulse Ox Interpretation: Normal Progress Note: Crisis team notified of patients case. Patient was evaluated by crisis, who advises that patient is not eligible for detox at this time. Patient is resting comfortably on reevaluation and will be discharged home. Provided with outpatient resources. Disposition - Disposition Disposition: HOME/ ROUTINE Disposition Time: 08:52 Condition: STABLE Additional Instructions: Follow up with PMD within 1-2 days. Return to ED if feel worse. Instructions: Alcohol Use - When Is Drinking a Problem? Forms: [facility] ([place]) - Clinical Impression Clinical Impression: Drug dependence - PA / SLEEVE BASTER / Resident Statement MD/DO has reviewed & agrees with the documentation as recorded. - Scribe Statement The provider has reviewed the documentation as recorded by the Scribe (Miroslava Millan) All medical record entries made by the Scribe were at my direction and personally dictated by me. I have reviewed the chart and agree that the record accurately reflects my personal performance of the history, physical exam, medical decision making, and the department course for this patient. I have also personally directed, reviewed, and agree with the discharge instructions and disposition.
== END 2017-11-08 08:56 | disposition home or self-care (01) ==
LOC: C.ER 08:06
DX: F10.20 Alcohol dependence, uncomplicated (principal); Y90.9 Presence of alcohol in blood, level not specified